=== PATIENT | female | born 1965 | race Caucasian/White ===

== ENCOUNTER 2016-03-24 15:59 | Emergency (ER) | payer SELFPAY ==
[~2016-03-24] VITALS: Ht 167.6 cm; Wt 79.4 kg
[2016-03-24 16:15] VITALS: BP 179/117
--- NOTE | 2016-03-24 16:21 | PHYS DOC ---
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 Reports she has been at dialysis and the hospital with her father. Denies chest pain or shortness of air. Review of Systems Review of Systems Constitutional: Denies fever or chills Eyes: Denies change in visual acuity, redness, or eye pain HENT: Nasal congestion and sore throat since Respiratory: Denies shortness of breath. Cough since Cardiovascular: No additional information not addressed in HPI GI: Denies abdominal pain, nausea, vomiting, bloody stools or diarrhea : Denies dysuria or hematuria Musculoskeletal: Denies back pain or joint pain Integument: Denies rash or skin lesions Neurologic: Denies headache, focal weakness or sensory changes Endocrine: Denies polyuria or polydipsia Current Medications Current Medications Current Medications Medications (Trade) Dose Ordered Sig/Arely Start Time Stop Time Status Last Admin Dose Admin Ibuprofen (Motrin) 800 mg 1X ONCE 03/24/16 16:30 03/24/16 16:31 DC 03/24/16 16:28 800 MG Ondansetron HCl (Zofran Odt) 4 mg 1X ONCE 03/24/16 17:45 03/24/16 17:45 DC 03/24/16 17:25 4 MG Allergies Allergies Allergies Coded Allergies Type Severity Reaction Last Updated Verified No Known Drug Allergies 05/15/14 No Physical Exam Physical Exam Constitutional: Well developed, well nourished, no acute distress, non-toxic appearance. HENT: Normocephalic, atraumatic, bilateral external ears normal, oropharynx moist, no oral exudates. Clear drainage bilateral nares. Oropharynx erythema without exudate Eyes: PERRLA, EOMI, conjunctiva normal, no discharge. Neck: Normal range of motion, no tenderness, supple, no stridor. Cardiovascular:Heart rate regular rhythm, no murmur Lungs & Thorax: Bilateral breath sounds clear to auscultation Abdomen: Bowel sounds normal, soft, no tenderness, no masses, no pulsatile masses. [] Skin: Warm, dry, no erythema, no rash. [] Back: No tenderness, no CVA tenderness. [] Extremities: No tenderness, no cyanosis, no clubbing, ROM intact, no edema. [] Neurologic: Alert and oriented X 3, normal motor function, normal sensory function, no focal deficits noted. [] Psychologic: Affect normal, judgement normal, mood normal. [] Current Patient Data Vital Signs Vital Signs Date Time Temp Pulse Resp B/P Pulse Ox O2 Delivery O2 Flow Rate FiO2 03/24/16 16:15 97.5 92 20 98 Room Air 97.5 Lab Values Laboratory Tests Test 03/24/16 16:10 Influenza Type A Antigen Negative (NEGATIVE) Influenza Type B Antigen Negative (NEGATIVE) EKG EKG [] Radiology/Procedures Radiology/Procedures [] Impressions: 1. Viral illness Course & Med Decision Making Course & Med Decision Making Pertinent Labs and Imaging studies reviewed. (See chart for details) [] Dragon Disclaimer Dragon Disclaimer This electronic medical record was generated, in whole or in part, using a voice recognition dictation system. Departure Departure Impression: Primary Impression: Viral illness Disposition: HOME, SELF-CARE Condition: STABLE Referrals: NO PCP (PCP) Patient Instructions: Viral Infections, [id number] Additional Instructions: 1. Take medication as prescribed 2. Follow up with primary doctor in 1-2 days 3. Return if problems or concerns 4. Continue the Ibuprofen/Tylenol for discomfort Scripts Guaifenesin (Mucinex)600 Mg Tablet.er1 Tab PO BID #14 TAB Prov:ROSINA EDGAR APRN 03/24/16 D-Methorphan Hb/Prometh Hcl (Promethazine-Dm Syrup)118 Ml Syrup5 Ml PO PRN Q6HRS #120 ML Prov:ROSINA EDGAR APRN 03/24/16 ROSINA EDGAR APRN Mar 24, 2016 16:21
[2016-03-24] MEDS ORDERED: IBUPROFEN 800 MG TABLET. PO ONE (16:30)
[2016-03-24 16:48] LABS: OBC FLU VALID
[2016-03-24] MEDS ORDERED: D-ME118S2 PO (17:17)
[2016-03-24] MEDS ORDERED: GUAI600T38 PO (17:17)
[2016-03-24] MEDS ORDERED: ONDANSETRON ODT 4 MG TAB.RAPDIS PO ONE (17:45)
== END 2016-03-24 17:26 | disposition home or self-care (01) ==
LOC: ER 15:59
DX: B34.9 Viral infection, unspecified (principal); Z99.2 Dependence on renal dialysis; Z87.01 Personal history of pneumonia (recurrent)
CPT/HCPCS: 87804; 99284; Q0162

== ENCOUNTER 2016-09-27 18:31 | Emergency (ER) | payer SELFPAY ==
[~2016-09-27] VITALS: Ht 162.6 cm; Wt 79.4 kg
[~2016-09-27 18:31] MED LIST: D-ME118S2 PO; GUAI600T47 PO
[2016-09-27 19:03] VITALS: BP 160/91
[2016-09-27] MEDS ORDERED: CEPH500T PO (19:36)
[2016-09-27] MEDS ORDERED: TRAM-48 PO (19:36)
--- NOTE | 2016-09-27 19:36 | PHYS DOC ---
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 Patient states she hit her right acrylic pinky finger nail in her track pushing the fingernail out. Review of Systems Review of Systems Constitutional: Denies fever or chills [] Eyes: Denies change in visual acuity, redness, or eye pain [] HENT: Denies nasal congestion or sore throat [] Respiratory: Denies cough or shortness of breath [] Cardiovascular: No additional information not addressed in HPI [] GI: Denies abdominal pain, nausea, vomiting, bloody stools or diarrhea [] : Denies dysuria or hematuria [] Musculoskeletal: Denies back pain or joint pain [] Integument: partial nail avulsion to the right ring finger Neurologic: Denies headache, focal weakness or sensory changes [] Endocrine: Denies polyuria or polydipsia [] Allergies Allergies Allergies Coded Allergies Type Severity Reaction Last Updated Verified No Known Drug Allergies 05/15/14 No Physical Exam Physical Exam Constitutional: Well developed, well nourished, no acute distress, non-toxic appearance. [] HENT: Normocephalic, atraumatic, bilateral external ears normal, oropharynx moist, no oral exudates, nose normal. [] Skin: right pinky finger nail is still attached to the nailbed. There is an acrylic decorated nail over the normal fingernail. There is small amount of soft tissue swelling of the tip of the finger. There is trace amount of bleeding between the nail and finger. Full range of motion to the right pinky finger. +2 right radial pulse. Adequate ulnar sensation to the right pinky Back: No tenderness, no CVA tenderness. [] Extremities: No tenderness, no cyanosis, no clubbing, ROM intact, no edema. [] Neurologic: Alert and oriented X 3, normal motor function, normal sensory function, no focal deficits noted. [] Psychologic: Affect normal, judgement normal, mood normal. [] Current Patient Data Vital Signs Vital Signs Date Time Temp Pulse Resp B/P (MAP) Pulse Ox O2 Delivery O2 Flow Rate FiO2 09/27/16 19:03 98.0 65 20 99 Room Air 98.0 EKG EKG [] Radiology/Procedures Radiology/Procedures [] Course & Med Decision Making Course & Med Decision Making Pertinent Labs and Imaging studies reviewed. (See chart for details) Patient is in the ED with right pinky finger partial nail avulsion. She does have acrylic nails. I recommended she considers removing them. She states she has an appointment with a beautician will take the nail out. She did have laceration in between the nail bed and the finger given tetanus shot. We did put her on antibiotics. Discharged with Ultram. Instructed to keep the area clean and dry. Dragon Disclaimer Dragon Disclaimer This electronic medical record was generated, in whole or in part, using a voice recognition dictation system. Departure Departure Impression: Primary Impression: Nail avulsion, finger Disposition: HOME, SELF-CARE Condition: STABLE Referrals: NO PCP (PCP) follow up with your own doctor in one week Patient Instructions: Nail Avulsion Injury Additional Instructions: You were seen for finger nail avulsion. Keep the finger clean and dry Monitor the area for signs and symptoms of infections including increased redness warmth or odor/yellow drainage from the area and return to the ED if they occur. We put you on antibiotics ensure you complete them. Do not drive on the pain medications. Scripts Tramadol Hcl (ULTRAM) 50 Mg Tablet 1 TAB PO Q6HRS, #30 TAB Prov: MARYJANE CHEATHAM APRN 09/27/16 Cephalexin (CEPHALEXIN) 500 Mg Tablet 1 TAB PO QID, #40 TAB Prov: MARYJANE CHEATHAM APRN 09/27/16 Problem Qualifiers Primary Impression: Nail avulsion, finger Encounter type: initial encounter Qualified Codes: S61.309A - Unspecified open wound of unspecified finger with damage to nail, initial encounter MARYJANE CHEATHAM APRN Sep 27, 2016 19:36
== END 2016-09-27 19:41 | disposition home or self-care (01) ==
LOC: ER 18:31
DX: S61.206A Unspecified open wound of right little finger without damage to nail, initial encounter (principal); S61.204A Unspecified open wound of right ring finger without damage to nail, initial encounter; Z87.01 Personal history of pneumonia (recurrent); X58.XXXA Exposure to other specified factors, initial encounter; Y93.89 Activity, other specified; Y92.89 Other specified places as the place of occurrence of the external cause; Y99.8 Other external cause status
CPT/HCPCS: 99283

== ENCOUNTER 2017-05-20 21:15 | Emergency (ER) | payer SELFPAY ==
[2017-05-20] MEDS: KETOROLAC 60 MG/2 ML INJ. IM (23:41)
== END 2017-05-20 23:58 | disposition home or self-care (01) ==
LOC: ER 21:15
DX: S50.02XA Contusion of left elbow, initial encounter (principal); Z98.51 Tubal ligation status; Z87.01 Personal history of pneumonia (recurrent); W17.2XXA Fall into hole, initial encounter; Y93.89 Activity, other specified; Y92.89 Other specified places as the place of occurrence of the external cause; Y99.8 Other external cause status
CPT/HCPCS: 73080; 96372; 99284; J1885

== ENCOUNTER 2021-07-12 21:29 | Emergency (ER) | payer SELFPAY ==
[~2021-07-12] VITALS: Ht 167.6 cm; Wt 78.6 kg
[~2021-07-12 21:29] MED LIST changes: +CEPH500T PO; -D-ME118S2 PO; +HYDR-3164 PO; +NAPR-514 PO; +PROM118S10 PO; +TRAM-48 PO
[2021-07-12 21:40] VITALS: BP 137/93
[2021-07-12] MEDS ORDERED: traMADol 50 MG TABLET PO ONE (22:30)
[2021-07-12] MEDS ORDERED: DOXYCYCLINE HYCLATE 100 MG TABLET PO ONE (22:30)
[2021-07-12] MEDS ORDERED: DOXY100C3 PO (22:36)
[2021-07-12] MEDS ORDERED: OXYC1TAB15 PO (22:36)
--- NOTE | 2021-07-12 22:37 | PHYS DOC ---
Past Medical History Past Medical History: Pneumonia, Other Additional Past Medical Histor: GALLBLADDER ENLARGED AND STONES, tumor R lutheran Past Surgical History: Tonsillectomy, Tubal ligation, Other Additional Past Surgical Histo: adhesions on bowels Smoking Status: Current Every Day Smoker Alcohol Use: None Drug Use: None General Adult EDM: Chief Complaint: INSECT BITE HPI: HPI: Patient is a 56 year old female presents with a right-sided chest wall tick bite. Patient states that she has soreness that goes up her lymph nodes. States that she does not know how long the tick has been on her but states that she pulled it off 2 days ago and the pain is gotten worse. Patient denies any fevers or chills denies any rigors. Review of Systems: Review of Systems: Constitutional: Denies fever or chills. [] Eyes: Denies change in visual acuity. [] HENT: Denies nasal congestion or sore throat. [] Respiratory: Denies cough or shortness of breath. [] Cardiovascular: Denies chest pain or edema. [] GI: Denies abdominal pain, nausea, vomiting, bloody stools or diarrhea. [] : Denies dysuria. [] Musculoskeletal: Denies back pain or joint pain. [] Integument: Patient has cellulitis underneath her right breast that extends into the underside of the breast. Patient has lymphadenitis on the right side Neurologic: Denies headache, focal weakness or sensory changes. [] Endocrine: Denies polyuria or polydipsia. [] Lymphatic: Denies swollen glands. [] Psychiatric: Denies depression or anxiety. [] Heart Score: C/O Chest Pain: No Risk Factors: Risk Factors: DM, Current or recent (<one month) smoker, HTN, HLP, family history of CAD, obesity. Risk Scores: Score 0 - 3: 2.5% MACE over next 6 weeks - Discharge Home Score 4 - 6: 20.3% MACE over next 6 weeks - Admit for Clinical Observation Score 7 - 10: 72.7% MACE over next 6 weeks - Early Invasive Strategies Allergies: Allergies: Allergies Coded Allergies Type Severity Reaction Last Updated Verified No Known Drug Allergies 05/15/14 No Physical Exam: PE: Constitutional: Well developed, well nourished, no acute distress, non-toxic appearance. [] HENT: Normocephalic, atraumatic, bilateral external ears normal, oropharynx moist, no oral exudates, nose normal. [] Eyes: PERRLA, EOMI, conjunctiva normal, no discharge. [] Neck: Normal range of motion, no tenderness, supple, no stridor. [] Cardiovascular:Heart rate regular rhythm, no murmur [] Lungs & Thorax: Bilateral breath sounds clear to auscultation [] Abdomen: Bowel sounds normal, soft, no tenderness, no masses, no pulsatile masses. [] Skin: Warm, dry, no erythema, no rash. [] Back: No tenderness, no CVA tenderness. [] Extremities: No tenderness, no cyanosis, no clubbing, ROM intact, no edema. [] Neurologic: Alert and oriented X 3, normal motor function, normal sensory function, no focal deficits noted. [] Psychologic: Affect normal, judgement normal, mood normal. [] Current Patient Data: Vital Signs: Vital Signs Date Time Temp Pulse Resp B/P (MAP) Pulse Ox O2 Delivery O2 Flow Rate FiO2 07/12/21 21:40 99.1 101 14 137/93 (108) 97 Room Air 99.1 EKG: EKG: [] Radiology/Procedures: Radiology/Procedures: [] Course & Med Decision Making: Course & Med Decision Making Pertinent Labs and Imaging studies reviewed. (See chart for details) [] Lyme's titer is pending. Patient will be started on antibiotics Radha Disclaimer: Radha Disclaimer: This electronic medical record was generated, in whole or in part, using a voice recognition dictation system. Departure Departure Impression: Primary Impression: Tick bite Disposition: HOME / SELF CARE / HOMELESS Condition: STABLE Referrals: NO PCP (PCP) Patient Instructions: Wood Tick Bite, [id number] Scripts Oxycodone/Apap 5-325 (PERCOCET 5-325 MG TABLET ) 1 Each Tablet 1 TAB PO PRN Q6HRS PRN for PAIN, #12 TAB 0 Refills Prov: CHARLEY MAZARIEGOS DO 07/12/21 Doxycycline Hyclate (DOXYCYCLINE HYCLATE) 100 Mg Capsule 1 CAP PO BID, #21 CAP Prov: CHARLEY MAZARIEGOS DO 07/12/21 CHARLEY MAZARIEGOS DO Jul 12, 2021 22:37
== END 2021-07-12 23:01 | disposition home or self-care (01) ==
LOC: ER 21:29
DX: S20.361A Insect bite (nonvenomous) of right front wall of thorax, initial encounter (principal); F17.200 Nicotine dependence, unspecified, uncomplicated; W57.XXXA Bitten or stung by nonvenomous insect and other nonvenomous arthropods, initial encounter; Y93.89 Activity, other specified; Y92.89 Other specified places as the place of occurrence of the external cause; Y99.8 Other external cause status
CPT/HCPCS: 36415; 87476; 99283